=== PATIENT | female | born 1945 | race Caucasian/White ===

== ENCOUNTER 2019-03-22 14:02 | Emergency (ER) | payer MEDICARE, OTHER ==
[~2019-03-22] VITALS: Ht 154.9 cm; Wt 59.0 kg
--- NOTE | 2019-03-22 14:12 | NUR ---
PT AMBULATED TO ER BED 07
[2019-03-22 14:13] VITALS: BP 157/82
--- NOTE | 2019-03-22 14:20 | NUR ---
73F C/O GENERAL WEAKNESS AND DIZZINESS X 1 WK. DENIES FALL/TRAUMA. AOX4. CLEAR SPEECH. EQUAL HAND STRENGTH BILATERALLY. FACIAL FEATURES SYMMETRICAL. NO S/S STROKE. AMBULATORY WITH SLOW, GUARDED GAIT. C/O EPISODIC MIGRAINES WITH NAUSEA, CURRENTLY RATED 8/10. PATIENT POSITIONED FOR COMFORT; HOB ELEVATED; BEDRAILS UP X1; BED DOWN. ER MD MADE AWARE OF PT STATUS.
[2019-03-22] MEDS ORDERED: ONDANSETRON 4 MG/2 ML VIAL IVP ONE (14:45)
[2019-03-22] MEDS ORDERED: NACL 0.9% 1,000 ML IV ONE (14:45)
--- NOTE | 2019-03-22 15:16 | NUR ---
Patient taken to CT scan via gurney by [employer].
--- NOTE | 2019-03-22 15:17 | NUR ---
Eloina davis in [facility] - 03/22/19 at 1517 by [id number] PATIENT TAKEN BY CLINICAL TRANSFORMATION SPECIALIST
[2019-03-22 15:37] LABS: APPEARANCE,URINE CLEAR (CLEAR); BILIRUBIN,URINE NEGATIVE (NEGATIVE); BLOOD, URINE NEGATIVE (NEGATIVE); COLOR,URINE YELLOW (YELLOW); LEUKOCYTE ESTERASE ,URINE TRACE (NEGATIVE); NITRITE, URINE NEGATIVE (NEGATIVE); UGLUCOSE NEGATIVE (NEGATIVE)
[2019-03-22 15:42] LABS: PROTHROMBIN TIME 9.1 secs (10.8-13.4)
[2019-03-22 15:51] LABS: ANION GAP 13.6 (8-16); CHLORIDE 106 mmol/L (98-107); CREATININE 0.8 mg/dL (0.6-1.3); GLUCOSE 105 mg/dL (74-106); POTASSIUM 3.6 mmol/L (3.5-5.1); SODIUM SERUM 142 mmol/L (136-145); UREA NITROGEN, BLOOD 15 mg/dL (7-18)
[2019-03-22 15:55] LABS: RBC,URINE 0-5 /HPF (0-5); WBC,URINE 0-5 /HPF (0-5)
[2019-03-22 16:04] LABS: ALBUMIN 3.8 g/dL (3.4-5.0); ASPARTATE AMINOTRANSFERASE 18 U/L (15-37); LIPASE 288 U/L (73-393); TOTAL BILIRUBIN 0.3 mg/dL (0.0-1.0)
[2019-03-22 17:26] LABS: BASOPHILS % (AUTO) 0.6 % (0.0-2.0); HEMATOCRIT 41.9 % (36-48); HEMOGLOBIN 14.1 g/dL (12.0-16.0); LYMPHOCYTES % (AUTO) 43.5 % (20.5-51.1); MEAN CORPUSCULAR HEMOGLOBIN 31 pg (27-31); MEAN CORPUSCULAR HGB CONC 34 g/dL (33-37); MEAN CORPUSCULAR VOLUME 92.6 fL (80-94); MONOCYTES % (AUTO) 7.2 % (1.7-9.3); NEUTROPHILS # (AUTO) 3.6 K/uL (1.8-7.7); NEUTROPHILS % (AUTO) 45.7 % (42.2-75.2); PLATELET COUNT (AUTO) 184 K/uL (140-450); RED BLOOD CELL COUNT(AUTO) 4.53 MIL/uL (4.20-5.40); RED CELL DISTRIBUTION WIDTH 12.8 % (11.6-13.7); WHITE BLOOD COUNT (AUTO) 7.6 K/uL (4.8-10.8)
[2019-03-22 17:27] LABS: EOSINOPHILS # (AUTO) 0.2 K/uL (0-0.4); LYMPHOCYTES # (AUTO) 3.3 K/uL (2.5-16.5); MONOCYTES # (AUTO) 0.5 K/uL (0.8-1.0)
[2019-03-22 18:06] VITALS: BP 130/64
--- NOTE | 2019-03-22 18:07 | NUR ---
Patient discharged with v/s stable. Written and verbal after care instructions given and explained. Patient alert, oriented and verbalized understanding of instructions. Pt's symptoms have been improved. Ambulatory with steady gait. All questions addressed prior to discharge. ID band removed. Patient advised to follow up with PMD. Rx of Zofran and Meclizine given. Patient educated on indication of medication including possible reaction and side effects. Opportunity to ask questions provided and answered.
== END 2019-03-22 18:07 | disposition home or self-care (01) ==
LOC: MED 14:02
DX: R42 Dizziness and giddiness (principal); R53.1 Weakness; R51 Headache; R79.1 Abnormal coagulation profile; E11.9 Type 2 diabetes mellitus without complications; M32.9 Systemic lupus erythematosus, unspecified; Z88.0 Allergy status to penicillin; Z79.4 Long term (current) use of insulin
CPT/HCPCS: 36415; 70450; 71045; 80053; 81001; 82948; 83690; 84484; 85025; 85610; 85730; 93005; 96361; 96374; 99284; J2405; J7030; Q0092